=== PATIENT | female | born 1955 | race Caucasian/White ===

== ENCOUNTER 2023-03-15 09:38 | Inpatient (IN) | payer OTHER, MEDICARE ==
[~2023-03-15] VITALS: Ht 154.9 cm; Wt 59.0 kg
[2023-03-15] VITALS (12 sets, daily range): BP systolic 83–162; PULSE 89–141; RESP 19–39; TEMP 97.3–98.9; O2SAT 94–100
[2023-03-15 10:26] LABS: HEMOGLOBIN 8.5 g/dL (12.0-16.0); LYMPHOCYTES # (AUTO) 0.6 K/uL (1.0-5.5); LYMPHOCYTES % (AUTO) 15.8 % (20.5-51.5); MEAN CORPUSCULAR HEMOGLOBIN 28 pg (27-31); MEAN CORPUSCULAR HGB CONC 33 % (32-36); MEAN CORPUSCULAR VOLUME 86 fL (79.0-98.0); MONOCYTES # (AUTO) 0.4 K/uL (0.0-1.0); MONOCYTES % (AUTO) 11.6 % (1.7-9.3); NEUTROPHILS # (AUTO) 2.6 K/uL (1.8-7.7); NEUTROPHILS % (AUTO) 71.6 % (40.0-70.0); PLATELET COUNT (AUTO) 247 K/uL (130-430); RED BLOOD CELL COUNT(AUTO) 3.02 MIL/uL (4.2-6.2); RED CELL DISTRIBUTION WIDTH 15.2 % (9.0-15.0); WHITE BLOOD COUNT (AUTO) 3.6 K/uL (4.8-10.8)
[2023-03-15 10:39] LABS: PROTHROMBIN TIME 10.5 SECS (9.5-12.5)
[2023-03-15 10:47] LABS: ALANINE AMINOTRANSFERASE 170 U/L (12-78); ALBUMIN 1.8 g/dL (3.4-4.8); ANION GAP 0 (5-15); ASPARTATE AMINOTRANSFERASE 262 U/L (10-37); BILIRUBIN,DIRECT 0.2 mg/dL (0.0-0.3); CALCIUM 9.9 mg/dL (8.4-11.0); CARBON DIOXIDE 30 mmol/L (23-29); CHLORIDE 95 mmol/L (98-107); CREATININE 0.45 mg/dL (0.55-1.30); GFR AFRICAN AMERICAN 178 mL/min (>90); GLUCOSE 132 mg/dL (74-106); SODIUM SERUM 125 mmol/L (136-145); TOTAL BILIRUBIN 0.5 mg/dL (0.0-1.0); TOTAL PROTEIN, SERUM 4.8 g/dL (6.4-8.3); UREA NITROGEN, BLOOD 24 mg/dL (8-21)
[2023-03-15 10:49] LABS: INFLUENZA TYPE A Negative (NEGATIVE); INFLUENZA TYPE B NEGATIVE (NEGATIVE)
[2023-03-15 10:50] LABS: GFR NON AFRICAN-AMERICAN 147 mL/min (>90)
[2023-03-15 10:51] LABS: POTASSIUM 2.2 mmol/L (3.5-5.1)
[2023-03-15 10:54] LABS: COVID19 ANTIGEN SOFIA FIA POSITIVE (NEGATIVE)
[2023-03-15 10:57] LABS: BILIRUBIN,URINE NEGATIVE (NEGATIVE); BLOOD, URINE 1+ (NEGATIVE); CLARITY/URINE SL CLOUDY (CLEAR); COLOR,URINE YELLOW (YELLOW); GLUCOSE,URINE NEGATIVE (NEGATIVE); KETONES,URINE NEGATIVE (NEGATIVE); LEUKOCYTE ESTERASE ,URINE NEGATIVE (NEGATIVE); NITRITE, URINE NEGATIVE (NEGATIVE); PROTEIN URINE 2+ (NEGATIVE); UROBILINOGEN,URINE 0.2 (0.2-1.0)
[2023-03-15] MEDS ORDERED: KCL 40 mEq in 100 mL (PREMIX) 100 ML IV ONE (11:00)
[2023-03-15] MEDS ORDERED: POTASSIUM CHLORIDE 40 MEQ in NS 250 ML IV ONE (11:30)
[2023-03-15 11:34] LABS: BACTERIA,URINE FEW /HPF (None Seen); FINE GRANULAR CASTS,URINE 0-10 /LPF (None Seen); WBC,URINE 0-3 /HPF (0-3)
[2023-03-15] MEDS ORDERED: IPRATROPIUM BROM 0.5 MG/2.5 ML VIAL.NEB (ATROVENT) INH ONE (11:45)
[2023-03-15] MEDS ORDERED: ALBUTEROL SULFATE 0.083% 2.5 MG/3 ML VIAL.NEB INH ONE (11:45)
[2023-03-15 12:13] LABS: BLOOD GAS BASE EXCESS 1.5 mmol/L (-3.0-3.0); BLOOD GAS HCO3 26.3 mmol/L (21.0-27.0); BLOOD GAS PCO2 42.2 mmHg (35.0-45.0); BLOOD GAS PH 7.413 (7.350-7.450); BLOOD GAS PO2 90.9 mmHg (75.0-100.0)
[2023-03-15 12:15] LABS: ALLEN'S TEST POSITIVE (P)
[2023-03-15] MEDS ORDERED: CLON0.1T PO (13:14)
[2023-03-15] MEDS ORDERED: APIX5TAB4 PO (13:14)
[2023-03-15] MEDS ORDERED: ACET325T PO ×2 (13:14)
[2023-03-15] MEDS ORDERED: BACL10TA PO (13:14)
[2023-03-15] MEDS ORDERED: LEVO25TA7 PO (13:15)
[2023-03-15] MEDS ORDERED: SENN8.6T19 PO (13:15)
[2023-03-15] MEDS ORDERED: FENT1PAT9 TD (13:15)
[2023-03-15] MEDS ORDERED: METO25TA6 PO (13:15)
[2023-03-15] MEDS ORDERED: BISA-79 PO (13:15)
[2023-03-15] MEDS ORDERED: CYM30 PO (13:15)
[2023-03-15] MEDS ORDERED: DOCU-144 PO (13:15)
[2023-03-15] MEDS ORDERED: MOM PO (13:15)
[2023-03-15] MEDS ORDERED: INSU100V7 SUBCUT (13:15)
[2023-03-15] MEDS ORDERED: HYDR2TAB7 PO (13:15)
[2023-03-15] MEDS ORDERED: ONDA-8 TL (13:15)
[2023-03-15] MEDS ORDERED: CYAN100010 PO (13:15)
[2023-03-15] MEDS ORDERED: PRO40 PO (13:15)
[2023-03-15] MEDS ORDERED: NALOXONE HCL 0.4 MG/ML AMP (NARCAN) IVP PRN ×2 (14:15)
[2023-03-15] MEDS ORDERED: ONDANSETRON HCL 4 MG/2 ML VIAL IVP PRN (14:15)
[2023-03-15] MEDS ORDERED: MILK OF MAGNESIA 30 ML UDC PO PRN (14:15)
[2023-03-15] MEDS ORDERED: cloNIDine HCL 0.1 MG TABLET PO PRN (14:15)
[2023-03-15] MEDS ORDERED: ACETAMINOPHEN 325 MG TABLET PO PRN (14:30)
[2023-03-15] MEDS: cefTRIAXone 1 GM IVPB PREMIX 50 ML IV SCH (15:47)
[2023-03-15] MEDS: IPRATROPIUM BROM 0.5 MG/2.5 ML VIAL.NEB (ATROVENT) INH SCH ×3 (15:53→23:20)
[2023-03-15] MEDS: ALBUTEROL SULFATE 0.083% 2.5 MG/3 ML VIAL.NEB INH SCH ×2 (15:54→20:07)
[2023-03-15] MEDS ORDERED: HYDROcodone/ACETAMIN 5-325 MG TAB (NORCO/ VICODIN) PO PRN (16:45)
[2023-03-15] MEDS: SENNOSIDES 8.6 MG TABLET PO SCH ×2 (17:28→21:15)
[2023-03-15] MEDS: AZITHROMYCIN 500 MG in NS 250 ML IV SCH (17:29)
[2023-03-15] MEDS: DEXAMETHASONE SOD PHOSPHATE 10 MG/ML VIAL IVP SCH (17:29)
[2023-03-15] MEDS ORDERED: NON-FORMULARY MEDICATION (Apixaban (Eliquis) 5 MG) PO SCH (21:00)
[2023-03-15] MEDS: DULoxetine HCL 30 MG CAPSULE.DR (CYMBALTA) PO SCH (21:15)
[2023-03-15] MEDS: NORMAL SALINE 5 ML DISP.SYRIN IVF SCH (21:15)
[2023-03-15] MEDS: DOCUSATE SODIUM 100 MG CAPSULE PO SCH (21:15)
[2023-03-15] MEDS: BACLOFEN 10 MG TABLET PO SCH (21:16)
[2023-03-15] MEDS: APIXABAN 2.5 MG TABLET PO SCH (21:17)
[2023-03-15] MEDS: METOPROLOL TARTRATE 25 MG TABLET PO SCH (21:19)
[2023-03-16] VITALS (28 sets, daily range): BP systolic 98–162; PULSE 79–115; RESP 20–34; TEMP 97.6–98.8; O2SAT 91–100
[2023-03-16] MEDS: ALBUTEROL SULFATE 0.083% 2.5 MG/3 ML VIAL.NEB INH SCH ×7 (00:35→23:18)
[2023-03-16] MEDS: IPRATROPIUM BROM 0.5 MG/2.5 ML VIAL.NEB (ATROVENT) INH SCH ×6 (03:27→23:18)
[2023-03-16 06:01] LABS: BASOPHILS % (AUTO) 0.3 % (0.0-2.0); EOSINOPHILS % (AUTO) 0.1 % (0.0-4.0); HEMATOCRIT 25.5 % (36-48); HEMOGLOBIN 8.2 g/dL (12.0-16.0); LYMPHOCYTES % (AUTO) 13.4 % (20.5-51.5); MEAN CORPUSCULAR HEMOGLOBIN 28 pg (27-31); MEAN CORPUSCULAR HGB CONC 32 % (32-36); MEAN CORPUSCULAR VOLUME 86 fL (79.0-98.0); MONOCYTES # (AUTO) 0.9 K/uL (0.0-1.0); NEUTROPHILS # (AUTO) 5.2 K/uL (1.8-7.7); NEUTROPHILS % (AUTO) 73.2 % (40.0-70.0); PLATELET COUNT (AUTO) 257 K/uL (130-430); RED BLOOD CELL COUNT(AUTO) 2.96 MIL/uL (4.2-6.2); RED CELL DISTRIBUTION WIDTH 15.5 % (9.0-15.0); WHITE BLOOD COUNT (AUTO) 7.1 K/uL (4.8-10.8)
[2023-03-16] MEDS: NACL 0.9% 1,000 ML IV SCH ×3 (06:48→21:40)
[2023-03-16] MEDS: NORMAL SALINE 5 ML DISP.SYRIN IVF SCH ×3 (06:48→21:40)
[2023-03-16 06:50] LABS: CALCIUM 10.9 mg/dL (8.4-11.0); CREATININE 0.45 mg/dL (0.55-1.30)
[2023-03-16 06:53] LABS: POTASSIUM 2.9 mmol/L (3.5-5.1)
[2023-03-16] MEDS: LEVOTHYROXINE SODIUM 0.025 MG TABLET PO SCH ×2 (07:00→08:43)
[2023-03-16] MEDS ORDERED: KCL 20 mEq in 100 mL (PREMIX) 100 ML IV ONE (08:00)
[2023-03-16] MEDS: DULoxetine HCL 30 MG CAPSULE.DR (CYMBALTA) PO SCH ×2 (08:41→20:57)
[2023-03-16] MEDS: METOPROLOL TARTRATE 25 MG TABLET PO SCH ×2 (08:41→20:58)
[2023-03-16 08:42] LABS: ALANINE AMINOTRANSFERASE 277 U/L (12-78); ASPARTATE AMINOTRANSFERASE 393 U/L (10-37)
[2023-03-16] MEDS: BACLOFEN 10 MG TABLET PO SCH ×2 (08:42→20:57)
[2023-03-16] MEDS: PANTOPRAZOLE SODIUM 40 MG TAB PO SCH (08:42)
[2023-03-16] MEDS: DOCUSATE SODIUM 100 MG CAPSULE PO SCH ×2 (08:42→20:56)
[2023-03-16] MEDS: SENNOSIDES 8.6 MG TABLET PO SCH ×3 (08:43→20:58)
[2023-03-16] MEDS: BISACODYL 5 MG TABLET.DR (DULCOLAX) PO SCH (08:43)
[2023-03-16] MEDS: APIXABAN 2.5 MG TABLET PO SCH ×2 (08:44→20:57)
[2023-03-16] MEDS ORDERED: POTASSIUM CHLORIDE 60 MEQ in NS 500 ML IV ONE (09:00)
[2023-03-16] MEDS: CYANOCOBALAMIN (VITAMIN B-12) 1,000 MCG TABLET PO SCH (09:35)
[2023-03-16] MEDS: fentaNYL 100 MCG/HR PATCH TD SCH (11:27)
[2023-03-16] MEDS: cefTRIAXone 1 GM IVPB PREMIX 50 ML IV SCH (15:24)
[2023-03-16] MEDS: AZITHROMYCIN 500 MG in NS 250 ML IV SCH (15:24)
[2023-03-16] MEDS: DEXAMETHASONE SOD PHOSPHATE 10 MG/ML VIAL IVP SCH (15:24)
[2023-03-17] VITALS (32 sets, daily range): BP systolic 90–131; PULSE 86–118; RESP 13–34; TEMP 97.5–98; O2SAT 12–100
[2023-03-17] MEDS: ALBUTEROL SULFATE 0.083% 2.5 MG/3 ML VIAL.NEB INH SCH ×5 (03:33→19:33)
[2023-03-17] MEDS: IPRATROPIUM BROM 0.5 MG/2.5 ML VIAL.NEB (ATROVENT) INH SCH ×5 (03:33→19:33)
[2023-03-17] MEDS: NORMAL SALINE 5 ML DISP.SYRIN IVF SCH ×3 (06:16→21:31)
[2023-03-17 07:33] LABS: HEMATOCRIT 24.3 % (36-48); HEMOGLOBIN 7.7 g/dL (12.0-16.0); LYMPHOCYTES # (AUTO) 0.6 K/uL (1.0-5.5); LYMPHOCYTES % (AUTO) 11.4 % (20.5-51.5); MEAN CORPUSCULAR HEMOGLOBIN 28 pg (27-31); MEAN CORPUSCULAR HGB CONC 32 % (32-36); MEAN CORPUSCULAR VOLUME 87 fL (79.0-98.0); MONOCYTES # (AUTO) 0.2 K/uL (0.0-1.0); MONOCYTES % (AUTO) 4.6 % (1.7-9.3); PLATELET COUNT (AUTO) 332 K/uL (130-430); RED BLOOD CELL COUNT(AUTO) 2.79 MIL/uL (4.2-6.2); WHITE BLOOD COUNT (AUTO) 4.8 K/uL (4.8-10.8)
[2023-03-17 08:01] LABS: ALBUMIN 1.7 g/dL (3.4-4.8); CALCIUM 9.8 mg/dL (8.4-11.0); CREATININE 0.29 mg/dL (0.55-1.30); POTASSIUM 4.1 mmol/L (3.5-5.1); TOTAL BILIRUBIN 0.3 mg/dL (0.0-1.0); TOTAL PROTEIN, SERUM 4.3 g/dL (6.4-8.3)
[2023-03-17] MEDS: SENNOSIDES 8.6 MG TABLET PO SCH ×3 (08:40→21:00)
[2023-03-17] MEDS: PANTOPRAZOLE SODIUM 40 MG TAB PO SCH (08:41)
[2023-03-17] MEDS: DULoxetine HCL 30 MG CAPSULE.DR (CYMBALTA) PO SCH ×2 (08:41→21:29)
[2023-03-17] MEDS: DOCUSATE SODIUM 100 MG CAPSULE PO SCH ×2 (08:41→21:00)
[2023-03-17] MEDS: BACLOFEN 10 MG TABLET PO SCH ×2 (08:43→21:29)
[2023-03-17] MEDS: METOPROLOL TARTRATE 25 MG TABLET PO SCH ×2 (08:44→21:30)
[2023-03-17] MEDS: APIXABAN 2.5 MG TABLET PO SCH ×2 (08:46→21:29)
[2023-03-17] MEDS: NACL 0.9% 1,000 ML IV SCH ×2 (08:48→15:00)
[2023-03-17] MEDS: CYANOCOBALAMIN (VITAMIN B-12) 1,000 MCG TABLET PO SCH (08:49)
[2023-03-17] MEDS: BISACODYL 5 MG TABLET.DR (DULCOLAX) PO SCH (08:51)
[2023-03-17 08:52] LABS: ERYTHROCYTE SEDIMENTATION RATE 5 MM/HR (0-20)
[2023-03-17] MEDS: MICAFUNGIN SODIUM 100 MG in NS 100 ML IV SCH (12:39)
[2023-03-17] MEDS: cefTRIAXone 1 GM IVPB PREMIX 50 ML IV SCH (14:43)
[2023-03-17] MEDS: DEXAMETHASONE SOD PHOSPHATE 10 MG/ML VIAL IVP SCH (15:14)
[2023-03-17] MEDS: AZITHROMYCIN 500 MG in NS 250 ML IV SCH (15:16)
[2023-03-18] VITALS (14 sets, daily range): BP systolic 95–112; PULSE 63–109; RESP 16–18; TEMP 97.1–98.4; O2SAT 91–100
[2023-03-18] MEDS: IPRATROPIUM BROM 0.5 MG/2.5 ML VIAL.NEB (ATROVENT) INH SCH ×7 (00:09→23:00)
[2023-03-18] MEDS: ALBUTEROL SULFATE 0.083% 2.5 MG/3 ML VIAL.NEB INH SCH ×7 (00:09→23:00)
[2023-03-18] MEDS: NORMAL SALINE 5 ML DISP.SYRIN IVF SCH ×3 (06:18→22:39)
[2023-03-18] MEDS: LEVOTHYROXINE SODIUM 0.025 MG TABLET PO SCH (06:18)
[2023-03-18 06:23] LABS: ERYTHROCYTE SEDIMENTATION RATE 4 MM/HR (0-20)
[2023-03-18] MEDS: NACL 0.9% 1,000 ML IV SCH ×3 (06:25→22:31)
[2023-03-18 06:39] LABS: BASOPHILS % (AUTO) 0.1 % (0.0-2.0); HEMATOCRIT 25.7 % (36-48); HEMOGLOBIN 8.2 g/dL (12.0-16.0); LYMPHOCYTES # (AUTO) 0.6 K/uL (1.0-5.5); LYMPHOCYTES % (AUTO) 7.8 % (20.5-51.5); MEAN CORPUSCULAR HEMOGLOBIN 28 pg (27-31); MEAN CORPUSCULAR HGB CONC 32 % (32-36); MEAN CORPUSCULAR VOLUME 87 fL (79.0-98.0); MONOCYTES # (AUTO) 0.3 K/uL (0.0-1.0); MONOCYTES % (AUTO) 4.2 % (1.7-9.3); NEUTROPHILS # (AUTO) 6.3 K/uL (1.8-7.7); NEUTROPHILS % (AUTO) 87.9 % (40.0-70.0); PLATELET COUNT (AUTO) 458 K/uL (130-430); RED BLOOD CELL COUNT(AUTO) 2.96 MIL/uL (4.2-6.2); RED CELL DISTRIBUTION WIDTH 16.6 % (9.0-15.0); WHITE BLOOD COUNT (AUTO) 7.1 K/uL (4.8-10.8)
[2023-03-18 07:06] LABS: ALBUMIN 1.8 g/dL (3.4-4.8); CALCIUM 10.3 mg/dL (8.4-11.0); CREATININE 0.45 mg/dL (0.55-1.30); POTASSIUM 3.9 mmol/L (3.5-5.1); TOTAL BILIRUBIN 0.3 mg/dL (0.0-1.0); TOTAL PROTEIN, SERUM 4.4 g/dL (6.4-8.3)
[2023-03-18] MEDS: DOCUSATE SODIUM 100 MG CAPSULE PO SCH ×2 (09:01→23:31)
[2023-03-18] MEDS: DULoxetine HCL 30 MG CAPSULE.DR (CYMBALTA) PO SCH ×2 (09:01→22:32)
[2023-03-18] MEDS: APIXABAN 2.5 MG TABLET PO SCH ×2 (09:02→22:50)
[2023-03-18] MEDS: BACLOFEN 10 MG TABLET PO SCH ×2 (09:03→22:31)
[2023-03-18] MEDS: PANTOPRAZOLE SODIUM 40 MG TAB PO SCH (09:03)
[2023-03-18] MEDS: SENNOSIDES 8.6 MG TABLET PO SCH ×3 (09:03→22:32)
[2023-03-18] MEDS: CYANOCOBALAMIN (VITAMIN B-12) 1,000 MCG TABLET PO SCH (09:04)
[2023-03-18] MEDS: BISACODYL 5 MG TABLET.DR (DULCOLAX) PO SCH (09:04)
[2023-03-18] MEDS: METOPROLOL TARTRATE 25 MG TABLET PO SCH ×2 (09:29→22:37)
[2023-03-18] MEDS: cefTRIAXone 1 GM IVPB PREMIX 50 ML IV SCH (15:40)
[2023-03-18] MEDS: MICAFUNGIN SODIUM 100 MG in NS 100 ML IV SCH (15:41)
[2023-03-18] MEDS: DEXAMETHASONE SOD PHOSPHATE 10 MG/ML VIAL IVP SCH (15:42)
[2023-03-18] MEDS: AZITHROMYCIN 500 MG in NS 250 ML IV SCH (16:02)
[2023-03-19 01:15] VITALS: BP_SYST 119; PULSE 87; RESP 20; TEMP 96.9; O2SAT 99
[2023-03-19] MEDS: ALBUTEROL SULFATE 0.083% 2.5 MG/3 ML VIAL.NEB INH SCH ×2 (03:00→07:00)
[2023-03-19] MEDS: IPRATROPIUM BROM 0.5 MG/2.5 ML VIAL.NEB (ATROVENT) INH SCH ×2 (03:00→07:00)
[2023-03-19 05:28] VITALS: O2SAT 99
[2023-03-19 06:11] LABS: ERYTHROCYTE SEDIMENTATION RATE 2 MM/HR (0-20)
[2023-03-19 06:16] LABS: BASOPHILS % (AUTO) 0.1 % (0.0-2.0); HEMATOCRIT 27.7 % (36-48); HEMOGLOBIN 8.8 g/dL (12.0-16.0); LYMPHOCYTES # (AUTO) 0.8 K/uL (1.0-5.5); LYMPHOCYTES % (AUTO) 9.5 % (20.5-51.5); MEAN CORPUSCULAR HEMOGLOBIN 27 pg (27-31); MEAN CORPUSCULAR HGB CONC 32 % (32-36); MEAN CORPUSCULAR VOLUME 87 fL (79.0-98.0); MONOCYTES # (AUTO) 0.3 K/uL (0.0-1.0); MONOCYTES % (AUTO) 3.1 % (1.7-9.3); NEUTROPHILS # (AUTO) 7.4 K/uL (1.8-7.7); NEUTROPHILS % (AUTO) 87.3 % (40.0-70.0); PLATELET COUNT (AUTO) 620 K/uL (130-430); RED BLOOD CELL COUNT(AUTO) 3.19 MIL/uL (4.2-6.2); RED CELL DISTRIBUTION WIDTH 16.7 % (9.0-15.0); WHITE BLOOD COUNT (AUTO) 8.5 K/uL (4.8-10.8)
[2023-03-19 06:32] LABS: CALCIUM 9.9 mg/dL (8.4-11.0); CREATININE 0.4 mg/dL (0.55-1.30); TOTAL BILIRUBIN 0.2 mg/dL (0.0-1.0); TOTAL PROTEIN, SERUM 4.5 g/dL (6.4-8.3)
[2023-03-19] MEDS: NORMAL SALINE 5 ML DISP.SYRIN IVF SCH ×3 (06:42→22:05)
[2023-03-19] MEDS: LEVOTHYROXINE SODIUM 0.025 MG TABLET PO SCH (06:56)
[2023-03-19] MEDS: NACL 0.9% 1,000 ML IV SCH (07:00)
[2023-03-19 09:50] VITALS: BP_SYST 115; PULSE 82; RESP 20; TEMP 97.7; O2SAT 94
[2023-03-19] MEDS: DULoxetine HCL 30 MG CAPSULE.DR (CYMBALTA) PO SCH ×2 (10:01→22:04)
[2023-03-19] MEDS: BACLOFEN 10 MG TABLET PO SCH ×2 (10:01→22:04)
[2023-03-19] MEDS: SENNOSIDES 8.6 MG TABLET PO SCH ×3 (10:01→22:04)
[2023-03-19] MEDS: BISACODYL 5 MG TABLET.DR (DULCOLAX) PO SCH (10:01)
[2023-03-19] MEDS: DOCUSATE SODIUM 100 MG CAPSULE PO SCH ×2 (10:01→22:36)
[2023-03-19] MEDS: CYANOCOBALAMIN (VITAMIN B-12) 1,000 MCG TABLET PO SCH (10:02)
[2023-03-19] MEDS: PANTOPRAZOLE SODIUM 40 MG TAB PO SCH (10:02)
[2023-03-19] MEDS: METOPROLOL TARTRATE 25 MG TABLET PO SCH ×2 (10:07→22:16)
[2023-03-19] MEDS: APIXABAN 2.5 MG TABLET PO SCH ×2 (10:10→22:18)
[2023-03-19 10:15] VITALS: O2SAT 94
[2023-03-19 11:23] VITALS: BP_SYST 109; PULSE 68; RESP 16; TEMP 97.4; O2SAT 94
[2023-03-19] MEDS: fentaNYL 100 MCG/HR PATCH TD SCH (12:01)
[2023-03-19 16:07] VITALS: BP_SYST 112; PULSE 74; RESP 15; TEMP 97.2; O2SAT 93
[2023-03-19] MEDS: MICAFUNGIN SODIUM 100 MG in NS 100 ML IV SCH (16:09)
[2023-03-19] MEDS: DEXAMETHASONE SOD PHOSPHATE 10 MG/ML VIAL IVP SCH (16:10)
[2023-03-19] MEDS: cefTRIAXone 1 GM IVPB PREMIX 50 ML IV SCH (17:54)
[2023-03-19] MEDS: AZITHROMYCIN 500 MG in NS 250 ML IV SCH (18:25)
[2023-03-20] VITALS (17 sets, daily range): BP systolic 74–151; PULSE 71–109; RESP 12–25; TEMP 97–97.5; O2SAT 94–100
[2023-03-20 05:58] LABS: BASOPHILS % (AUTO) 0.2 % (0.0-2.0); HEMATOCRIT 29.2 % (36-48); HEMOGLOBIN 9.1 g/dL (12.0-16.0); LYMPHOCYTES % (AUTO) 9.2 % (20.5-51.5); MEAN CORPUSCULAR HEMOGLOBIN 27 pg (27-31); MEAN CORPUSCULAR HGB CONC 31 % (32-36); MEAN CORPUSCULAR VOLUME 86 fL (79.0-98.0); MONOCYTES # (AUTO) 0.5 K/uL (0.0-1.0); MONOCYTES % (AUTO) 4.6 % (1.7-9.3); NEUTROPHILS # (AUTO) 9.1 K/uL (1.8-7.7); RED BLOOD CELL COUNT(AUTO) 3.38 MIL/uL (4.2-6.2); RED CELL DISTRIBUTION WIDTH 17.5 % (9.0-15.0); WHITE BLOOD COUNT (AUTO) 10.5 K/uL (4.8-10.8)
[2023-03-20 06:01] LABS: ERYTHROCYTE SEDIMENTATION RATE 1 MM/HR (0-20)
[2023-03-20 06:26] LABS: PLATELET COUNT (AUTO) 835 K/uL (130-430)
[2023-03-20 06:41] LABS: ALBUMIN 2.2 g/dL (3.4-4.8); CALCIUM 10.3 mg/dL (8.4-11.0); CREATININE 0.51 mg/dL (0.55-1.30); POTASSIUM 3.8 mmol/L (3.5-5.1); TOTAL BILIRUBIN 0.4 mg/dL (0.0-1.0); TOTAL PROTEIN, SERUM 4.9 g/dL (6.4-8.3)
[2023-03-20] MEDS: NORMAL SALINE 5 ML DISP.SYRIN IVF SCH (06:58)
[2023-03-20] MEDS: LEVOTHYROXINE SODIUM 0.025 MG TABLET PO SCH (07:01)
[2023-03-20] MEDS: SENNOSIDES 8.6 MG TABLET PO SCH ×3 (10:08→20:49)
[2023-03-20] MEDS: PANTOPRAZOLE SODIUM 40 MG TAB PO SCH (10:08)
[2023-03-20] MEDS: BISACODYL 5 MG TABLET.DR (DULCOLAX) PO SCH (10:08)
[2023-03-20] MEDS: CYANOCOBALAMIN (VITAMIN B-12) 1,000 MCG TABLET PO SCH (10:09)
[2023-03-20] MEDS: DULoxetine HCL 30 MG CAPSULE.DR (CYMBALTA) PO SCH ×2 (10:09→20:49)
[2023-03-20] MEDS: DOCUSATE SODIUM 100 MG CAPSULE PO SCH ×2 (10:09→20:50)
[2023-03-20] MEDS: METOPROLOL TARTRATE 25 MG TABLET PO SCH ×2 (10:13→20:47)
[2023-03-20] MEDS: BACLOFEN 10 MG TABLET PO SCH ×2 (10:14→20:49)
[2023-03-20] MEDS: APIXABAN 2.5 MG TABLET PO SCH ×2 (10:18→20:49)
[2023-03-20 11:04] LABS: TOTAL IRON BIND. CAPACITY 156 ug/dL (250-450)
[2023-03-20 11:17] LABS: ACETAMINOPHEN 6 ug/mL (1-30); SALICYLATE 3 mg/dL (3-30)
[2023-03-20] MEDS: MICAFUNGIN SODIUM 100 MG in NS 100 ML IV SCH (13:43)
[2023-03-20 14:22] LABS: ABG O2 SAT% ESTIMATE 96.5 % (94.0-100.0); BLOOD GAS HCO3 22.2 mmol/L (21.0-27.0); BLOOD GAS PO2 100.1 mmHg (75.0-100.0)
[2023-03-20 14:23] LABS: BLOOD GAS BASE EXCESS -5.7 mmol/L (-3.0-3.0); BLOOD GAS PCO2 52.7 mmHg (35.0-45.0); BLOOD GAS PH 7.242 (7.350-7.450)
[2023-03-20 14:24] LABS: ALLEN'S TEST POSITIVE (P)
[2023-03-20] MEDS: cefTRIAXone 1 GM IVPB PREMIX 50 ML IV SCH (15:12)
[2023-03-20] MEDS ORDERED: NS 1000 ML IV.SOLN IV ONE (15:15)
[2023-03-20] MEDS ORDERED: HYDROCORTISONE SOD SUCC 100 MG/2 ML VIAL IVP ONE (15:15)
[2023-03-20] MEDS: NOREPINEPHRINE BITARTRATE 4 MG in D5W 246 ML IV PRN (15:48)
[2023-03-20] MEDS: NACL 0.9% 1,000 ML IV SCH (16:45)
[2023-03-20] MEDS: LORazepam 2 MG/ML VIAL IVP PRN (18:47)
[2023-03-20] MEDS: HYDROCORTISONE SOD SUCC 100 MG/2 ML VIAL IVP SCH (21:02)
[2023-03-21] VITALS (33 sets, daily range): BP systolic 92–177; PULSE 82–116; RESP 17–36; TEMP 96.9–98.4; O2SAT 95–100
[2023-03-21] MEDS: NACL 0.9% 1,000 ML IV SCH ×2 (02:32→11:12)
[2023-03-21 04:54] LABS: ERYTHROCYTE SEDIMENTATION RATE < 1 MM/HR (0-20)
[2023-03-21 04:58] LABS: BASOPHILS % (AUTO) 0.3 % (0.0-2.0); EOSINOPHILS % (AUTO) 0.1 % (0.0-4.0); HEMATOCRIT 23.8 % (36-48); HEMOGLOBIN 7.4 g/dL (12.0-16.0); LYMPHOCYTES # (AUTO) 0.5 K/uL (1.0-5.5); LYMPHOCYTES % (AUTO) 4.1 % (20.5-51.5); MEAN CORPUSCULAR HEMOGLOBIN 27 pg (27-31); MEAN CORPUSCULAR HGB CONC 31 % (32-36); MEAN CORPUSCULAR VOLUME 87 fL (79.0-98.0); MONOCYTES # (AUTO) 0.2 K/uL (0.0-1.0); MONOCYTES % (AUTO) 1.9 % (1.7-9.3); NEUTROPHILS # (AUTO) 11.7 K/uL (1.8-7.7); NEUTROPHILS % (AUTO) 93.6 % (40.0-70.0); PLATELET COUNT (AUTO) 455 K/uL (130-430); RED BLOOD CELL COUNT(AUTO) 2.75 MIL/uL (4.2-6.2); RED CELL DISTRIBUTION WIDTH 17.4 % (9.0-15.0); WHITE BLOOD COUNT (AUTO) 12.5 K/uL (4.8-10.8)
[2023-03-21 05:22] LABS: CALCIUM 9.5 mg/dL (8.4-11.0); CREATININE 0.69 mg/dL (0.55-1.30); POTASSIUM 3.5 mmol/L (3.5-5.1)
[2023-03-21] MEDS: LEVOTHYROXINE SODIUM 0.025 MG TABLET PO SCH (06:21)
[2023-03-21] MEDS: HYDROCORTISONE SOD SUCC 100 MG/2 ML VIAL IVP SCH ×3 (06:22→21:29)
[2023-03-21 07:07] LABS: ALPHA-1-ANTITRYPSIN, S 229 mg/dL (101-187)
[2023-03-21 08:06] LABS: FERRITIN 697 ng/mL (15-150)
[2023-03-21 08:18] LABS: BARBITURATE, URINE NEGATIVE (NEG <=200); BENZODIAZEPINE, URINE NEGATIVE (NEG <=150); CANNABINOID, URINE NEGATIVE (NEG <=50); COCAINE, URINE NEGATIVE (NEG <=150); METHAMPHETAMINES SCREEN,URINE NEGATIVE (NEG <=500); OPIATE, URINE NEGATIVE (NEG <=100); PHENCYCLIDINE SCREEN,URINE NEGATIVE (NEG <=25); UR TRICYCLIC ANTIDEPRESSANTS NEGATIVE (NEG <=300); URINE AMPHETAMINE NEGATIVE (NEG <=500); URINE METHADONE NEGATIVE (NEG <=200); URINE OXYCODONE SCREEN NEGATIVE (NEG <=100); URINE PROPOXYPHENE SCREEN NEGATIVE (NEG <=300)
[2023-03-21] MEDS: DOCUSATE SODIUM 100 MG CAPSULE PO SCH (09:00)
[2023-03-21] MEDS: CYANOCOBALAMIN (VITAMIN B-12) 1,000 MCG TABLET PO SCH (09:00)
[2023-03-21] MEDS: SENNOSIDES 8.6 MG TABLET PO SCH ×3 (09:30→21:28)
[2023-03-21] MEDS: BACLOFEN 10 MG TABLET PO SCH ×2 (09:31→21:30)
[2023-03-21] MEDS: DULoxetine HCL 30 MG CAPSULE.DR (CYMBALTA) PO SCH ×2 (09:32→21:30)
[2023-03-21] MEDS: METOPROLOL TARTRATE 25 MG TABLET PO SCH ×2 (09:33→21:31)
[2023-03-21] MEDS: PANTOPRAZOLE SODIUM 40 MG TAB PO SCH (09:33)
[2023-03-21] MEDS: BISACODYL 5 MG TABLET.DR (DULCOLAX) PO SCH (09:35)
[2023-03-21] MEDS: APIXABAN 2.5 MG TABLET PO SCH ×2 (09:35→21:29)
[2023-03-21 10:57] LABS: BLOOD GAS PCO2 26.3 mmHg (35.0-45.0); BLOOD GAS PH 7.476 (7.350-7.450)
[2023-03-21 10:58] LABS: ABG O2 SAT% ESTIMATE 98.5 % (94.0-100.0); ALLEN'S TEST POSITIVE (P); BLOOD GAS BASE EXCESS -2.9 mmol/L (-3.0-3.0)
[2023-03-21 12:07] LABS: HEPATITIS C VIRUS AB Non Reactive (Non Reactive)
[2023-03-21] MEDS: MICAFUNGIN SODIUM 100 MG in NS 100 ML IV SCH (12:38)
[2023-03-21] MEDS: cefTRIAXone 1 GM IVPB PREMIX 50 ML IV SCH (12:39)
[2023-03-21] MEDS: HYDROmorphone 2 MG TAB PO PRN (12:51)
[2023-03-21 13:07] LABS: HEPATITIS A AB, IgM Negative (Negative); HEPATITIS B CORE AB, IgM Negative (Negative); HEPATITIS B SURFACE AG Negative (Negative)
[2023-03-21 16:06] LABS: ANTI NUCLEAR AB WITH REFLEX Negative (Negative)
[2023-03-21] MEDS: D5/0.45 NS 1,000 ML IV SCH (18:49)
[2023-03-21] MEDS: DOCUSATE SODIUM 100 MG/10 ML UDC PO SCH (21:29)
[2023-03-22] VITALS (36 sets, daily range): BP systolic 79–178; PULSE 75–131; RESP 10–42; TEMP 98.3–98.6; O2SAT 80–100
[2023-03-22] MEDS ORDERED: hydrALAZINE HCL 20 MG/ML VIAL ONE (03:26)
[2023-03-22] MEDS: D5/0.45 NS 1,000 ML IV SCH ×3 (04:15→21:26)
[2023-03-22] MEDS: ACETAMINOPHEN 325 MG TABLET PO PRN ×2 (04:34→07:00)
[2023-03-22] MEDS: HYDROmorphone 2 MG TAB PO PRN (05:18)
[2023-03-22 06:20] LABS: ALBUMIN 2.1 g/dL (3.4-4.8); CALCIUM 9.5 mg/dL (8.4-11.0); CREATININE 0.88 mg/dL (0.55-1.30); POTASSIUM 3.1 mmol/L (3.5-5.1); TOTAL BILIRUBIN 0.6 mg/dL (0.0-1.0)
[2023-03-22] MEDS: LEVOTHYROXINE SODIUM 0.025 MG TABLET PO SCH (07:02)
[2023-03-22] MEDS: HYDROCORTISONE SOD SUCC 100 MG/2 ML VIAL IVP SCH ×3 (07:05→21:42)
[2023-03-22 07:26] LABS: BASOPHILS # (AUTO) 0.1 K/uL (0.0-0.2); BASOPHILS % (AUTO) 0.3 % (0.0-2.0); HEMATOCRIT 31.5 % (36-48); HEMOGLOBIN 9.5 g/dL (12.0-16.0); LYMPHOCYTES # (AUTO) 0.5 K/uL (1.0-5.5); LYMPHOCYTES % (AUTO) 2.6 % (20.5-51.5); MEAN CORPUSCULAR HEMOGLOBIN 27 pg (27-31); MEAN CORPUSCULAR HGB CONC 30 % (32-36); MEAN CORPUSCULAR VOLUME 88 fL (79.0-98.0); MONOCYTES # (AUTO) 0.6 K/uL (0.0-1.0); MONOCYTES % (AUTO) 3.2 % (1.7-9.3); NEUTROPHILS # (AUTO) 18.5 K/uL (1.8-7.7); NEUTROPHILS % (AUTO) 93.9 % (40.0-70.0); RED CELL DISTRIBUTION WIDTH 18.1 % (9.0-15.0); WHITE BLOOD COUNT (AUTO) 19.7 K/uL (4.8-10.8)
[2023-03-22] MEDS: IPRATROPIUM BROM 0.5 MG/2.5 ML VIAL.NEB (ATROVENT) INH PRN (07:39)
[2023-03-22] MEDS: ALBUTEROL SULFATE 0.083% 2.5 MG/3 ML VIAL.NEB INH PRN (07:39)
[2023-03-22 08:01] LABS: PLATELET COUNT (AUTO) 809 K/uL (130-430)
[2023-03-22 08:29] LABS: ERYTHROCYTE SEDIMENTATION RATE 4 MM/HR (0-20)
[2023-03-22 08:35] LABS: TOTAL PROTEIN, SERUM 4.8 g/dL (6.4-8.3)
[2023-03-22] MEDS ORDERED: POTASSIUM CHLORIDE 20 MEQ/PKT PACKET NG ONE (10:00)
[2023-03-22 10:14] LABS: ABG O2 SAT% ESTIMATE 98.9 % (94.0-100.0); BLOOD GAS BASE EXCESS -3.9 mmol/L (-3.0-3.0); BLOOD GAS HCO3 18.1 mmol/L (21.0-27.0); BLOOD GAS PO2 136.1 mmHg (75.0-100.0)
[2023-03-22 10:15] LABS: ALLEN'S TEST POSITIVE (P)
[2023-03-22] MEDS: PANTOPRAZOLE SODIUM 40 MG TAB PO SCH (10:17)
[2023-03-22] MEDS: SENNOSIDES 8.6 MG TABLET PO SCH ×3 (10:17→21:00)
[2023-03-22] MEDS: BISACODYL 5 MG TABLET.DR (DULCOLAX) PO SCH (10:18)
[2023-03-22] MEDS: BACLOFEN 10 MG TABLET PO SCH ×2 (10:19→21:43)
[2023-03-22] MEDS: DOCUSATE SODIUM 100 MG/10 ML UDC PO SCH ×2 (10:19→21:00)
[2023-03-22] MEDS: METOPROLOL TARTRATE 25 MG TABLET PO SCH ×2 (10:20→21:00)
[2023-03-22] MEDS: CYANOCOBALAMIN (VITAMIN B-12) 1,000 MCG TABLET PO SCH (10:21)
[2023-03-22] MEDS: APIXABAN 2.5 MG TABLET PO SCH ×2 (10:21→21:46)
[2023-03-22] MEDS ORDERED: BARICITINIB -Non-Formulary 2 MG TABLET PO ONE (10:30)
[2023-03-22] MEDS: DULoxetine HCL 30 MG CAPSULE.DR (CYMBALTA) PO SCH ×2 (10:31→21:46)
[2023-03-22 11:07] LABS: ANTI-SMOOTH MUSCLE AB 6 Units (0-19)
[2023-03-22] MEDS: MICAFUNGIN SODIUM 100 MG in NS 100 ML IV SCH (12:30)
[2023-03-22] MEDS: PIPERACILLIN/TAZO 4.5GM/DEX-IS 100 ML IV SCH ×2 (13:45→21:42)
[2023-03-22] MEDS: fentaNYL 100 MCG/HR PATCH TD SCH (13:51)
[2023-03-22] MEDS ORDERED: cefTRIAXone 1 GM IVPB PREMIX 50 ML IV SCH (15:00)
[2023-03-22] MEDS: INSULIN REGULAR, HUMAN 100 UNITS/ML, 3 ML VIAL (humuLIN R) SUBCUT PRN ×2 (18:45→22:24)
[2023-03-22] MEDS: NOREPINEPHRINE BITARTRATE 4 MG in D5W 246 ML IV PRN (21:16)
[2023-03-23] VITALS (25 sets, daily range): BP systolic 91–145; PULSE 61–93; RESP 14–34; TEMP 98.1–99.5; O2SAT 90–100
[2023-03-23 05:37] LABS: HEMATOCRIT 25.2 % (36-48); MEAN CORPUSCULAR HEMOGLOBIN 28 pg (27-31); MEAN CORPUSCULAR HGB CONC 32 % (32-36); MEAN CORPUSCULAR VOLUME 87 fL (79.0-98.0); MONOCYTES # (AUTO) 0.5 K/uL (0.0-1.0); MONOCYTES % (AUTO) 4.7 % (1.7-9.3); NEUTROPHILS # (AUTO) 8.4 K/uL (1.8-7.7); NEUTROPHILS % (AUTO) 85.3 % (40.0-70.0); PLATELET COUNT (AUTO) 523 K/uL (130-430); RED CELL DISTRIBUTION WIDTH 18.3 % (9.0-15.0); WHITE BLOOD COUNT (AUTO) 9.9 K/uL (4.8-10.8)
[2023-03-23 05:53] LABS: ERYTHROCYTE SEDIMENTATION RATE < 1 MM/HR (0-20)
[2023-03-23] MEDS: HYDROCORTISONE SOD SUCC 100 MG/2 ML VIAL IVP SCH ×3 (06:30→21:39)
[2023-03-23] MEDS: PIPERACILLIN/TAZO 4.5GM/DEX-IS 100 ML IV SCH ×3 (06:30→21:38)
[2023-03-23] MEDS: LEVOTHYROXINE SODIUM 0.025 MG TABLET PO SCH (06:31)
[2023-03-23 06:48] LABS: CALCIUM 8.3 mg/dL (8.4-11.0); CREATININE 0.65 mg/dL (0.55-1.30)
[2023-03-23 07:03] LABS: POTASSIUM 2.6 mmol/L (3.5-5.1)
[2023-03-23] MEDS: DULoxetine HCL 30 MG CAPSULE.DR (CYMBALTA) PO SCH ×2 (08:18→21:40)
[2023-03-23] MEDS: APIXABAN 2.5 MG TABLET PO SCH ×2 (08:19→21:42)
[2023-03-23] MEDS: BISACODYL 5 MG TABLET.DR (DULCOLAX) PO SCH (08:19)
[2023-03-23] MEDS: DOCUSATE SODIUM 100 MG/10 ML UDC PO SCH ×2 (08:20→21:38)
[2023-03-23] MEDS: PANTOPRAZOLE SODIUM 40 MG TAB PO SCH (08:20)
[2023-03-23] MEDS: SENNOSIDES 8.6 MG TABLET PO SCH ×3 (08:20→21:39)
[2023-03-23] MEDS: BACLOFEN 10 MG TABLET PO SCH ×2 (08:21→21:51)
[2023-03-23] MEDS: CYANOCOBALAMIN (VITAMIN B-12) 1,000 MCG TABLET PO SCH (08:26)
[2023-03-23] MEDS: BARICITINIB -Non-Formulary 2 MG TABLET PO SCH (08:27)
[2023-03-23] MEDS ORDERED: POTASSIUM CHLORIDE 40 MEQ in NS 250 ML IV ONE (08:30)
[2023-03-23] MEDS: VANCOMYCIN HCL 1,250 MG in NS 250 ML IV SCH (12:03)
[2023-03-23] MEDS: D5/0.45 NS 1,000 ML IV SCH ×2 (13:36→21:53)
[2023-03-23] MEDS: MICAFUNGIN SODIUM 100 MG in NS 100 ML IV SCH (13:37)
[2023-03-23] MEDS: METOPROLOL TARTRATE 25 MG TABLET PO SCH ×2 (21:40→21:52)
[2023-03-24] VITALS (31 sets, daily range): BP systolic 94–152; PULSE 65–96; RESP 16–28; TEMP 98.1–98.8; O2SAT 99–100
[2023-03-24] MEDS: D5/0.45 NS 1,000 ML IV SCH (06:15)
[2023-03-24 06:34] LABS: EOSINOPHILS % (AUTO) 0.1 % (0.0-4.0); HEMOGLOBIN 7.7 g/dL (12.0-16.0); LYMPHOCYTES # (AUTO) 0.5 K/uL (1.0-5.5); LYMPHOCYTES % (AUTO) 7.9 % (20.5-51.5); MEAN CORPUSCULAR HEMOGLOBIN 28 pg (27-31); MEAN CORPUSCULAR HGB CONC 32 % (32-36); MEAN CORPUSCULAR VOLUME 87 fL (79.0-98.0); MONOCYTES # (AUTO) 0.3 K/uL (0.0-1.0); MONOCYTES % (AUTO) 4.1 % (1.7-9.3); NEUTROPHILS # (AUTO) 6.1 K/uL (1.8-7.7); NEUTROPHILS % (AUTO) 87.9 % (40.0-70.0); PLATELET COUNT (AUTO) 385 K/uL (130-430); RED BLOOD CELL COUNT(AUTO) 2.75 MIL/uL (4.2-6.2); RED CELL DISTRIBUTION WIDTH 18.8 % (9.0-15.0); WHITE BLOOD COUNT (AUTO) 6.9 K/uL (4.8-10.8)
[2023-03-24] MEDS: PIPERACILLIN/TAZO 4.5GM/DEX-IS 100 ML IV SCH ×3 (06:40→21:38)
[2023-03-24] MEDS: HYDROCORTISONE SOD SUCC 100 MG/2 ML VIAL IVP SCH ×3 (06:40→21:39)
[2023-03-24] MEDS: LEVOTHYROXINE SODIUM 0.025 MG TABLET PO SCH (06:40)
[2023-03-24 07:01] LABS: CALCIUM 7.8 mg/dL (8.4-11.0); CREATININE 0.59 mg/dL (0.55-1.30); POTASSIUM 3.1 mmol/L (3.5-5.1)
[2023-03-24 08:02] LABS: ERYTHROCYTE SEDIMENTATION RATE < 1 MM/HR (0-20)
[2023-03-24] MEDS: DULoxetine HCL 30 MG CAPSULE.DR (CYMBALTA) PO SCH ×2 (08:06→21:41)
[2023-03-24] MEDS: SENNOSIDES 8.6 MG TABLET PO SCH ×3 (08:07→21:42)
[2023-03-24] MEDS: DOCUSATE SODIUM 100 MG/10 ML UDC PO SCH ×2 (08:07→21:39)
[2023-03-24] MEDS: METOPROLOL TARTRATE 25 MG TABLET PO SCH ×2 (08:08→21:43)
[2023-03-24] MEDS: BACLOFEN 10 MG TABLET PO SCH ×2 (08:09→21:42)
[2023-03-24] MEDS: APIXABAN 2.5 MG TABLET PO SCH ×2 (08:09→21:41)
[2023-03-24] MEDS: BISACODYL 5 MG TABLET.DR (DULCOLAX) PO SCH (08:10)
[2023-03-24] MEDS: PANTOPRAZOLE SODIUM 40 MG TAB PO SCH (08:10)
[2023-03-24] MEDS: CYANOCOBALAMIN (VITAMIN B-12) 1,000 MCG TABLET PO SCH (08:11)
[2023-03-24] MEDS: BARICITINIB -Non-Formulary 2 MG TABLET PO SCH (08:12)
[2023-03-24] MEDS ORDERED: POTASSIUM CHLORIDE 20 MEQ/PKT PACKET PO ONE (10:00)
[2023-03-24] MEDS: VANCOMYCIN HCL 1,250 MG in NS 250 ML IV SCH (10:37)
[2023-03-24 11:17] LABS: ABG O2 SAT% ESTIMATE 98.5 % (94.0-100.0); ALLEN'S TEST POSITIVE (P); BLOOD GAS BASE EXCESS -3.9 mmol/L (-3.0-3.0); BLOOD GAS HCO3 18.6 mmol/L (21.0-27.0); BLOOD GAS PCO2 27.6 mmHg (35.0-45.0); BLOOD GAS PH 7.446 (7.350-7.450); BLOOD GAS PO2 116.8 mmHg (75.0-100.0)
[2023-03-24] MEDS: MICAFUNGIN SODIUM 100 MG in NS 100 ML IV SCH (12:52)
[2023-03-25] VITALS (37 sets, daily range): BP systolic 72–150; PULSE 63–104; RESP 9–26; TEMP 97.8–99.2; O2SAT 98–100
[2023-03-25 04:32] LABS: ERYTHROCYTE SEDIMENTATION RATE < 1 MM/HR (0-20)
[2023-03-25 05:09] LABS: BASOPHILS % (AUTO) 0.1 % (0.0-2.0); HEMATOCRIT 23.9 % (36-48); HEMOGLOBIN 7.5 g/dL (12.0-16.0); LYMPHOCYTES # (AUTO) 0.5 K/uL (1.0-5.5); LYMPHOCYTES % (AUTO) 6.2 % (20.5-51.5); MEAN CORPUSCULAR HEMOGLOBIN 28 pg (27-31); MEAN CORPUSCULAR HGB CONC 31 % (32-36); MEAN CORPUSCULAR VOLUME 88 fL (79.0-98.0); MONOCYTES # (AUTO) 0.2 K/uL (0.0-1.0); MONOCYTES % (AUTO) 2.7 % (1.7-9.3); NEUTROPHILS # (AUTO) 7.4 K/uL (1.8-7.7); PLATELET COUNT (AUTO) 303 K/uL (130-430); RED BLOOD CELL COUNT(AUTO) 2.72 MIL/uL (4.2-6.2); RED CELL DISTRIBUTION WIDTH 18.7 % (9.0-15.0); WHITE BLOOD COUNT (AUTO) 8.2 K/uL (4.8-10.8)
[2023-03-25 05:11] LABS: ALBUMIN 1.7 g/dL (3.4-4.8); CREATININE 0.47 mg/dL (0.55-1.30); POTASSIUM 3.1 mmol/L (3.5-5.1); TOTAL BILIRUBIN 0.4 mg/dL (0.0-1.0); TOTAL PROTEIN, SERUM 3.8 g/dL (6.4-8.3)
[2023-03-25] MEDS: HYDROCORTISONE SOD SUCC 100 MG/2 ML VIAL IVP SCH ×2 (06:14→17:44)
[2023-03-25] MEDS: LEVOTHYROXINE SODIUM 0.025 MG TABLET PO SCH (06:14)
[2023-03-25] MEDS: PIPERACILLIN/TAZO 4.5GM/DEX-IS 100 ML IV SCH ×3 (06:15→21:27)
[2023-03-25] MEDS: BACLOFEN 10 MG TABLET PO SCH ×2 (08:18→21:24)
[2023-03-25] MEDS: DULoxetine HCL 30 MG CAPSULE.DR (CYMBALTA) PO SCH ×2 (08:18→21:25)
[2023-03-25] MEDS: PANTOPRAZOLE SODIUM 40 MG TAB PO SCH (08:19)
[2023-03-25] MEDS: METOPROLOL TARTRATE 25 MG TABLET PO SCH ×2 (08:19→21:26)
[2023-03-25] MEDS: BARICITINIB -Non-Formulary 2 MG TABLET PO SCH (08:20)
[2023-03-25] MEDS: APIXABAN 2.5 MG TABLET PO SCH ×2 (08:20→21:28)
[2023-03-25] MEDS: CYANOCOBALAMIN (VITAMIN B-12) 1,000 MCG TABLET PO SCH (08:22)
[2023-03-25] MEDS: BISACODYL 5 MG TABLET.DR (DULCOLAX) PO SCH (08:23)
[2023-03-25] MEDS: SENNOSIDES 8.6 MG TABLET PO SCH ×3 (08:23→21:26)
[2023-03-25] MEDS: DOCUSATE SODIUM 100 MG/10 ML UDC PO SCH ×2 (08:23→21:25)
[2023-03-25] MEDS ORDERED: FUROSEMIDE 40 MG/4 ML VIAL IVP ONE (08:45)
[2023-03-25] MEDS ORDERED: POTASSIUM CHLORIDE 20 MEQ TABLET.ER PO ONE ×2 (08:45)
[2023-03-25] MEDS: VANCOMYCIN HCL 1,250 MG in NS 250 ML IV SCH (10:23)
[2023-03-25] MEDS: fentaNYL 100 MCG/HR PATCH TD SCH (12:00)
[2023-03-25] MEDS: D5/0.45 NS 1,000 ML IV SCH ×3 (12:15→18:22)
[2023-03-25] MEDS: MICAFUNGIN SODIUM 100 MG in NS 100 ML IV SCH (13:39)
[2023-03-25 16:59] LABS: VANCOMYCIN,TROUGH 15.3 ug/mL (10.0-20.0)
[2023-03-25] MEDS ORDERED: POTASSIUM CHLORIDE 20 MEQ/PKT PACKET NG ONE (17:15)
[2023-03-25] MEDS: COLISTIMETHATE SODIUM 150 MG VIAL INH SCH (20:15)
[2023-03-26] VITALS (30 sets, daily range): BP systolic 101–155; PULSE 60–107; RESP 12–23; TEMP 97.6–98.1; O2SAT 96–100
[2023-03-26 05:52] LABS: ERYTHROCYTE SEDIMENTATION RATE < 1 MM/HR (0-20)
[2023-03-26 06:07] LABS: BASOPHILS % (AUTO) 0.1 % (0.0-2.0); HEMATOCRIT 22.3 % (36-48); HEMOGLOBIN 7.2 g/dL (12.0-16.0); LYMPHOCYTES # (AUTO) 0.5 K/uL (1.0-5.5); LYMPHOCYTES % (AUTO) 5.1 % (20.5-51.5); MEAN CORPUSCULAR HEMOGLOBIN 28 pg (27-31); MEAN CORPUSCULAR HGB CONC 32 % (32-36); MEAN CORPUSCULAR VOLUME 87 fL (79.0-98.0); MONOCYTES # (AUTO) 0.3 K/uL (0.0-1.0); MONOCYTES % (AUTO) 3.5 % (1.7-9.3); NEUTROPHILS # (AUTO) 8.9 K/uL (1.8-7.7); NEUTROPHILS % (AUTO) 91.3 % (40.0-70.0); PLATELET COUNT (AUTO) 314 K/uL (130-430); RED BLOOD CELL COUNT(AUTO) 2.57 MIL/uL (4.2-6.2); RED CELL DISTRIBUTION WIDTH 18.9 % (9.0-15.0); WHITE BLOOD COUNT (AUTO) 9.7 K/uL (4.8-10.8)
[2023-03-26] MEDS: PIPERACILLIN/TAZO 4.5GM/DEX-IS 100 ML IV SCH ×3 (06:15→22:23)
[2023-03-26] MEDS: LEVOTHYROXINE SODIUM 0.025 MG TABLET PO SCH (06:16)
[2023-03-26] MEDS: HYDROCORTISONE SOD SUCC 100 MG/2 ML VIAL IVP SCH ×2 (06:16→17:55)
[2023-03-26 06:42] LABS: ALBUMIN 1.5 g/dL (3.4-4.8); CALCIUM 8.3 mg/dL (8.4-11.0); CREATININE 0.43 mg/dL (0.55-1.30); TOTAL BILIRUBIN 0.3 mg/dL (0.0-1.0); TOTAL PROTEIN, SERUM 3.6 g/dL (6.4-8.3)
[2023-03-26 07:45] LABS: POTASSIUM 2.7 mmol/L (3.5-5.1)
[2023-03-26] MEDS: D5/0.45 NS 1,000 ML IV SCH ×2 (08:15→18:06)
[2023-03-26] MEDS: COLISTIMETHATE SODIUM 150 MG VIAL INH SCH ×2 (08:27→22:08)
[2023-03-26] MEDS ORDERED: KCL 40 mEq in 100 mL (PREMIX) 100 ML IV ONE (08:45)
[2023-03-26] MEDS: DOCUSATE SODIUM 100 MG/10 ML UDC PO SCH ×2 (09:24→20:15)
[2023-03-26] MEDS: PANTOPRAZOLE SODIUM 40 MG TAB PO SCH (09:25)
[2023-03-26] MEDS: BACLOFEN 10 MG TABLET PO SCH ×2 (09:25→20:15)
[2023-03-26] MEDS: METOPROLOL TARTRATE 25 MG TABLET PO SCH ×2 (09:25→20:15)
[2023-03-26] MEDS: CYANOCOBALAMIN (VITAMIN B-12) 1,000 MCG TABLET PO SCH (09:26)
[2023-03-26] MEDS: APIXABAN 2.5 MG TABLET PO SCH ×2 (09:26→20:16)
[2023-03-26] MEDS: SENNOSIDES 8.6 MG TABLET PO SCH ×3 (09:26→20:15)
[2023-03-26] MEDS: BARICITINIB -Non-Formulary 2 MG TABLET PO SCH (09:26)
[2023-03-26] MEDS: DULoxetine HCL 30 MG CAPSULE.DR (CYMBALTA) PO SCH ×2 (09:31→20:15)
[2023-03-26] MEDS: BISACODYL 5 MG TABLET.DR (DULCOLAX) PO SCH (09:31)
[2023-03-26] MEDS: VANCOMYCIN HCL 1,250 MG in NS 250 ML IV SCH (12:05)
[2023-03-26] MEDS: MICAFUNGIN SODIUM 100 MG in NS 100 ML IV SCH (14:02)
[2023-03-26 14:25] LABS: ABG O2 SAT% ESTIMATE 99.3 % (94.0-100.0); BLOOD GAS BASE EXCESS -3.8 mmol/L (-3.0-3.0); BLOOD GAS HCO3 20.6 mmol/L (21.0-27.0); BLOOD GAS PCO2 35.7 mmHg (35.0-45.0); BLOOD GAS PH 7.379 (7.350-7.450)
[2023-03-26 14:26] LABS: ALLEN'S TEST POSITIVE (P)
[2023-03-26] MEDS: HYDROmorphone 2 MG TAB PO PRN (18:09)
[2023-03-27] VITALS (29 sets, daily range): BP systolic 88–185; PULSE 40–111; RESP 13–30; TEMP 97.6–98.4; O2SAT 95–100
[2023-03-27] MEDS: D5/0.45 NS 1,000 ML IV SCH ×2 (04:54→13:49)
[2023-03-27 05:09] LABS: LYMPHOCYTES # (AUTO) 0.6 K/uL (1.0-5.5); LYMPHOCYTES % (AUTO) 6.6 % (20.5-51.5); MEAN CORPUSCULAR HEMOGLOBIN 28 pg (27-31); MEAN CORPUSCULAR HGB CONC 32 % (32-36); MEAN CORPUSCULAR VOLUME 86 fL (79.0-98.0); MONOCYTES # (AUTO) 0.4 K/uL (0.0-1.0); NEUTROPHILS # (AUTO) 8.1 K/uL (1.8-7.7); NEUTROPHILS % (AUTO) 89.4 % (40.0-70.0); PLATELET COUNT (AUTO) 300 K/uL (130-430); RED BLOOD CELL COUNT(AUTO) 2.38 MIL/uL (4.2-6.2); RED CELL DISTRIBUTION WIDTH 18.8 % (9.0-15.0); WHITE BLOOD COUNT (AUTO) 9.1 K/uL (4.8-10.8)
[2023-03-27 05:49] LABS: ALBUMIN 1.4 g/dL (3.4-4.8); CALCIUM 8.8 mg/dL (8.4-11.0); CREATININE 0.49 mg/dL (0.55-1.30); POTASSIUM 3.1 mmol/L (3.5-5.1); TOTAL BILIRUBIN 0.3 mg/dL (0.0-1.0); TOTAL PROTEIN, SERUM 3.2 g/dL (6.4-8.3)
[2023-03-27] MEDS: PIPERACILLIN/TAZO 4.5GM/DEX-IS 100 ML IV SCH ×2 (06:00→22:00)
[2023-03-27] MEDS: HYDROCORTISONE SOD SUCC 100 MG/2 ML VIAL IVP SCH ×2 (06:00→18:00)
[2023-03-27 06:16] LABS: HEMOGLOBIN 6.5 g/dL (12.0-16.0)
[2023-03-27 06:17] LABS: HEMATOCRIT 20.6 % (36-48)
[2023-03-27] MEDS: COLISTIMETHATE SODIUM 150 MG VIAL INH SCH ×2 (08:08→20:12)
[2023-03-27] MEDS: SENNOSIDES 8.6 MG TABLET PO SCH ×3 (08:32→20:38)
[2023-03-27] MEDS: DOCUSATE SODIUM 100 MG/10 ML UDC PO SCH ×2 (08:32→20:38)
[2023-03-27] MEDS: PANTOPRAZOLE SODIUM 40 MG TAB PO SCH (08:33)
[2023-03-27] MEDS: DULoxetine HCL 30 MG CAPSULE.DR (CYMBALTA) PO SCH ×2 (08:33→20:38)
[2023-03-27] MEDS: METOPROLOL TARTRATE 25 MG TABLET PO SCH ×2 (08:34→20:38)
[2023-03-27] MEDS: LEVOTHYROXINE SODIUM 0.025 MG TABLET PO SCH (08:35)
[2023-03-27] MEDS: BACLOFEN 10 MG TABLET PO SCH ×2 (08:35→20:38)
[2023-03-27] MEDS: BISACODYL 5 MG TABLET.DR (DULCOLAX) PO SCH (08:35)
[2023-03-27] MEDS: CYANOCOBALAMIN (VITAMIN B-12) 1,000 MCG TABLET PO SCH (08:35)
[2023-03-27] MEDS: BARICITINIB -Non-Formulary 2 MG TABLET PO SCH (08:36)
[2023-03-27] MEDS: APIXABAN 2.5 MG TABLET PO SCH ×2 (09:00→20:38)
[2023-03-27] MEDS: VANCOMYCIN HCL 1,250 MG in NS 250 ML IV SCH (10:37)
[2023-03-27] MEDS ORDERED: POTASSIUM CHLORIDE 20 MEQ TABLET.ER PO ONE (11:00)
[2023-03-27] MEDS: MICAFUNGIN SODIUM 100 MG in NS 100 ML IV SCH (12:01)
[2023-03-27] MEDS: hydrALAZINE HCL 20 MG/ML VIAL IVP PRN (19:06)
[2023-03-28] VITALS (35 sets, daily range): BP systolic 102–180; PULSE 9–136; RESP 19–39; TEMP 97–98.3; O2SAT 83–100
[2023-03-28] MEDS: D5/0.45 NS 1,000 ML IV SCH ×3 (00:54→20:56)
[2023-03-28] MEDS: hydrALAZINE HCL 20 MG/ML VIAL IVP PRN ×2 (01:02→13:42)
[2023-03-28] MEDS: LORazepam 2 MG/ML VIAL IVP PRN ×2 (01:03→08:27)
[2023-03-28] MEDS: PIPERACILLIN/TAZO 4.5GM/DEX-IS 100 ML IV SCH ×3 (05:09→20:55)
[2023-03-28] MEDS: HYDROCORTISONE SOD SUCC 100 MG/2 ML VIAL IVP SCH ×2 (05:10→18:08)
[2023-03-28 05:16] LABS: BASOPHILS % (AUTO) 0.3 % (0.0-2.0); EOSINOPHILS % (AUTO) 0.1 % (0.0-4.0); HEMATOCRIT 37.2 % (36-48); HEMOGLOBIN 11.9 g/dL (12.0-16.0); LYMPHOCYTES # (AUTO) 0.3 K/uL (1.0-5.5); LYMPHOCYTES % (AUTO) 1.5 % (20.5-51.5); MEAN CORPUSCULAR HEMOGLOBIN 28 pg (27-31); MEAN CORPUSCULAR HGB CONC 32 % (32-36); MEAN CORPUSCULAR VOLUME 86 fL (79.0-98.0); MONOCYTES # (AUTO) 0.5 K/uL (0.0-1.0); MONOCYTES % (AUTO) 3.2 % (1.7-9.3); NEUTROPHILS # (AUTO) 15.9 K/uL (1.8-7.7); NEUTROPHILS % (AUTO) 94.9 % (40.0-70.0); PLATELET COUNT (AUTO) 514 K/uL (130-430); RED BLOOD CELL COUNT(AUTO) 4.32 MIL/uL (4.2-6.2); RED CELL DISTRIBUTION WIDTH 17.5 % (9.0-15.0); WHITE BLOOD COUNT (AUTO) 16.8 K/uL (4.8-10.8)
[2023-03-28 05:37] LABS: CREATININE 0.45 mg/dL (0.55-1.30)
[2023-03-28 06:00] LABS: ERYTHROCYTE SEDIMENTATION RATE 3 MM/HR (0-20)
[2023-03-28 06:10] LABS: POTASSIUM 2.9 mmol/L (3.5-5.1)
[2023-03-28] MEDS ORDERED: KCL 40 mEq in 100 mL (PREMIX) 100 ML IV ONE (06:45)
[2023-03-28] MEDS: LEVOTHYROXINE SODIUM 0.025 MG TABLET PO SCH (07:00)
[2023-03-28] MEDS: COLISTIMETHATE SODIUM 150 MG VIAL INH SCH ×2 (07:38→20:01)
[2023-03-28] MEDS: BACLOFEN 10 MG TABLET PO SCH ×2 (08:25→20:40)
[2023-03-28] MEDS: DOCUSATE SODIUM 100 MG/10 ML UDC PO SCH ×2 (08:25→20:40)
[2023-03-28] MEDS: DULoxetine HCL 30 MG CAPSULE.DR (CYMBALTA) PO SCH ×2 (08:25→20:40)
[2023-03-28] MEDS: METOPROLOL TARTRATE 25 MG TABLET PO SCH ×2 (08:26→20:40)
[2023-03-28] MEDS: BISACODYL 5 MG TABLET.DR (DULCOLAX) PO SCH (08:26)
[2023-03-28] MEDS: CYANOCOBALAMIN (VITAMIN B-12) 1,000 MCG TABLET PO SCH (08:26)
[2023-03-28] MEDS: APIXABAN 2.5 MG TABLET PO SCH ×2 (08:26→20:40)
[2023-03-28] MEDS: SENNOSIDES 8.6 MG TABLET PO SCH ×3 (08:26→20:41)
[2023-03-28] MEDS: PANTOPRAZOLE SODIUM 40 MG/VIAL (PROTONIX) IVP SCH (08:29)
[2023-03-28 10:21] LABS: BLOOD GAS PH 7.405 (7.350-7.450); BLOOD GAS PO2 68.2 mmHg (75.0-100.0)
[2023-03-28 10:22] LABS: ALLEN'S TEST POSITIVE (P); BLOOD GAS HCO3 18.4 mmol/L (21.0-27.0)
[2023-03-28] MEDS: VANCOMYCIN HCL 1,250 MG in NS 250 ML IV SCH (11:26)
[2023-03-28] MEDS: fentaNYL 100 MCG/HR PATCH TD SCH (11:29)
[2023-03-28] MEDS: MICAFUNGIN SODIUM 100 MG in NS 100 ML IV SCH (13:36)
[2023-03-28] MEDS: CEFIDEROCOL SULFATE TOSYLATE 1 GM in NS 100 ML IV SCH ×2 (15:25→20:55)
[2023-03-29] VITALS (31 sets, daily range): BP systolic 86–190; PULSE 58–106; RESP 17–37; TEMP 96–97.2; O2SAT 92–100
[2023-03-29 04:53] LABS: ERYTHROCYTE SEDIMENTATION RATE < 1 MM/HR (0-20)
[2023-03-29] MEDS: PIPERACILLIN/TAZO 4.5GM/DEX-IS 100 ML IV SCH (05:05)
[2023-03-29] MEDS: HYDROCORTISONE SOD SUCC 100 MG/2 ML VIAL IVP SCH ×2 (05:07→17:22)
[2023-03-29] MEDS: CEFIDEROCOL SULFATE TOSYLATE 1 GM in NS 100 ML IV SCH ×3 (05:08→22:50)
[2023-03-29 05:13] LABS: BASOPHILS % (AUTO) 0.1 % (0.0-2.0); EOSINOPHILS % (AUTO) 0.3 % (0.0-4.0); HEMATOCRIT 30.6 % (36-48); LYMPHOCYTES # (AUTO) 0.4 K/uL (1.0-5.5); LYMPHOCYTES % (AUTO) 4.6 % (20.5-51.5); MEAN CORPUSCULAR HEMOGLOBIN 28 pg (27-31); MEAN CORPUSCULAR HGB CONC 33 % (32-36); MEAN CORPUSCULAR VOLUME 86 fL (79.0-98.0); MONOCYTES # (AUTO) 0.4 K/uL (0.0-1.0); MONOCYTES % (AUTO) 4.5 % (1.7-9.3); NEUTROPHILS # (AUTO) 7.4 K/uL (1.8-7.7); NEUTROPHILS % (AUTO) 90.5 % (40.0-70.0); PLATELET COUNT (AUTO) 364 K/uL (130-430); RED BLOOD CELL COUNT(AUTO) 3.55 MIL/uL (4.2-6.2); RED CELL DISTRIBUTION WIDTH 17.4 % (9.0-15.0); WHITE BLOOD COUNT (AUTO) 8.1 K/uL (4.8-10.8)
[2023-03-29] MEDS: D5/0.45 NS 1,000 ML IV SCH ×2 (05:34→16:15)
[2023-03-29 05:35] LABS: ALBUMIN 1.6 g/dL (3.4-4.8); CALCIUM 9.5 mg/dL (8.4-11.0); CREATININE 0.4 mg/dL (0.55-1.30); TOTAL BILIRUBIN 0.6 mg/dL (0.0-1.0); TOTAL PROTEIN, SERUM 3.8 g/dL (6.4-8.3)
[2023-03-29 06:07] LABS: POTASSIUM 2.7 mmol/L (3.5-5.1)
[2023-03-29] MEDS: LEVOTHYROXINE SODIUM 0.025 MG TABLET PO SCH (06:23)
[2023-03-29] MEDS: COLISTIMETHATE SODIUM 150 MG VIAL INH SCH ×2 (07:27→20:00)
[2023-03-29] MEDS ORDERED: KCL 40 mEq in 100 mL (PREMIX) 100 ML IV ONE (08:00)
[2023-03-29] MEDS ORDERED: *LOVENOX 1MG/KG Q24H/PHARMACY XX ONE (08:15)
[2023-03-29] MEDS: METOPROLOL TARTRATE 25 MG TABLET PO SCH ×2 (09:00)
[2023-03-29] MEDS: DULoxetine HCL 30 MG CAPSULE.DR (CYMBALTA) PO SCH ×2 (09:00)
[2023-03-29] MEDS: CYANOCOBALAMIN (VITAMIN B-12) 1,000 MCG TABLET PO SCH (09:00)
[2023-03-29] MEDS: BACLOFEN 10 MG TABLET PO SCH ×2 (09:00)
[2023-03-29] MEDS: BISACODYL 5 MG TABLET.DR (DULCOLAX) PO SCH (09:00)
[2023-03-29] MEDS: DOCUSATE SODIUM 100 MG/10 ML UDC PO SCH ×2 (09:00)
[2023-03-29] MEDS: SENNOSIDES 8.6 MG TABLET PO SCH ×3 (09:00→13:32)
[2023-03-29] MEDS: APIXABAN 2.5 MG TABLET PO SCH (09:00)
[2023-03-29] MEDS: PANTOPRAZOLE SODIUM 40 MG/VIAL (PROTONIX) IVP SCH (09:34)
[2023-03-29] MEDS ORDERED: ENOXAPARIN SODIUM 60 MG/0.6 ML SYRINGE SUBCUT ONE (11:00)
[2023-03-29] MEDS: VANCOMYCIN HCL 1,250 MG in NS 250 ML IV SCH (11:31)
[2023-03-29] MEDS: MICAFUNGIN SODIUM 100 MG in NS 100 ML IV SCH (13:29)
[2023-03-29] MEDS: LORazepam 2 MG/ML VIAL IVP PRN (17:22)
[2023-03-29] MEDS: INSULIN REGULAR, HUMAN 100 UNITS/ML, 3 ML VIAL (humuLIN R) SUBCUT PRN (22:31)
[2023-03-30] VITALS (30 sets, daily range): BP systolic 100–177; PULSE 47–111; RESP 16–36; TEMP 96.3–97.4; O2SAT 94–100
[2023-03-30 05:45] LABS: BASOPHILS % (AUTO) 0.1 % (0.0-2.0); HEMATOCRIT 33.8 % (36-48); HEMOGLOBIN 10.5 g/dL (12.0-16.0); LYMPHOCYTES # (AUTO) 0.3 K/uL (1.0-5.5); LYMPHOCYTES % (AUTO) 1.6 % (20.5-51.5); MEAN CORPUSCULAR HEMOGLOBIN 27 pg (27-31); MEAN CORPUSCULAR HGB CONC 31 % (32-36); MEAN CORPUSCULAR VOLUME 88 fL (79.0-98.0); MONOCYTES # (AUTO) 0.8 K/uL (0.0-1.0); MONOCYTES % (AUTO) 5.4 % (1.7-9.3); NEUTROPHILS # (AUTO) 14.7 K/uL (1.8-7.7); NEUTROPHILS % (AUTO) 92.9 % (40.0-70.0); PLATELET COUNT (AUTO) 499 K/uL (130-430); RED BLOOD CELL COUNT(AUTO) 3.85 MIL/uL (4.2-6.2); RED CELL DISTRIBUTION WIDTH 18.2 % (9.0-15.0); WHITE BLOOD COUNT (AUTO) 15.8 K/uL (4.8-10.8)
[2023-03-30 05:50] LABS: CALCIUM 9.8 mg/dL (8.4-11.0); CREATININE 0.52 mg/dL (0.55-1.30); POTASSIUM 3.4 mmol/L (3.5-5.1)
[2023-03-30] MEDS: HYDROCORTISONE SOD SUCC 100 MG/2 ML VIAL IVP SCH ×2 (06:34→17:31)
[2023-03-30] MEDS: CEFIDEROCOL SULFATE TOSYLATE 1 GM in NS 100 ML IV SCH ×3 (06:34→21:20)
[2023-03-30] MEDS: D5/0.45 NS 1,000 ML IV SCH ×3 (06:36→19:39)
[2023-03-30] MEDS: LEVOTHYROXINE SODIUM 0.025 MG TABLET PO SCH (06:38)
[2023-03-30 06:40] LABS: ERYTHROCYTE SEDIMENTATION RATE 1 MM/HR (0-20)
[2023-03-30] MEDS ORDERED: FUROSEMIDE 40 MG/4 ML VIAL IVP ONE (08:00)
[2023-03-30] MEDS ORDERED: ALBUMIN HUMAN 25% 100 ML IV ONE (08:15)
[2023-03-30] MEDS: BACLOFEN 10 MG TABLET PO SCH ×2 (08:54→21:19)
[2023-03-30] MEDS: METOPROLOL TARTRATE 25 MG TABLET PO SCH ×2 (08:54→21:21)
[2023-03-30] MEDS: DOCUSATE SODIUM 100 MG/10 ML UDC PO SCH ×2 (08:54→21:19)
[2023-03-30] MEDS: BISACODYL 5 MG TABLET.DR (DULCOLAX) PO SCH (08:54)
[2023-03-30] MEDS: SENNOSIDES 8.6 MG TABLET PO SCH ×3 (08:54→21:19)
[2023-03-30] MEDS: DULoxetine HCL 30 MG CAPSULE.DR (CYMBALTA) PO SCH ×2 (08:54→21:19)
[2023-03-30] MEDS: CYANOCOBALAMIN (VITAMIN B-12) 1,000 MCG TABLET PO SCH (08:55)
[2023-03-30] MEDS: PANTOPRAZOLE SODIUM 40 MG/VIAL (PROTONIX) IVP SCH (08:58)
[2023-03-30] MEDS: ENOXAPARIN SODIUM 60 MG/0.6 ML SYRINGE SUBCUT SCH (08:58)
[2023-03-30] MEDS: BALSAM PERU/CASTOR OIL 56.7 GM OINT...G. TP SCH (09:00)
[2023-03-30] MEDS: COLISTIMETHATE SODIUM 150 MG VIAL INH SCH ×2 (09:17→21:02)
[2023-03-30] MEDS: hydrALAZINE HCL 20 MG/ML VIAL IVP PRN ×3 (11:28→22:50)
[2023-03-30] MEDS: VANCOMYCIN HCL 1,250 MG in NS 250 ML IV SCH (11:29)
[2023-03-30] MEDS ORDERED: ACETYLCYSTEINE 20% 4 ML VIAL (RT) ONE (13:43)
[2023-03-30] MEDS ORDERED: ACETYLCYSTEINE 20% 4 ML VIAL (RT) INH ONE ×2 (14:00→18:30)
[2023-03-30] MEDS ORDERED: IPRATROPIUM/ALBUTEROL SULFATE 3 ML AMPUL.NEB (DUONEB) INH ONE (14:00)
[2023-03-30] MEDS: IPRATROPIUM BROM 0.5 MG/2.5 ML VIAL.NEB (ATROVENT) INH PRN (14:01)
[2023-03-30] MEDS: ALBUTEROL SULFATE 0.083% 2.5 MG/3 ML VIAL.NEB INH PRN (14:01)
[2023-03-30] MEDS ORDERED: ACETYLCYSTEINE 20% 4 ML VIAL (RT) INH SCH (15:00)
[2023-03-30] MEDS: LORazepam 2 MG/ML VIAL IVP PRN (16:13)
[2023-03-30] MEDS ORDERED: hydrALAZINE HCL 20 MG/ML VIAL ONE (17:29)
[2023-03-30] MEDS: IPRATROPIUM/ALBUTEROL SULFATE 3 ML AMPUL.NEB (DUONEB) INH SCH (19:37)
[2023-03-31] VITALS (35 sets, daily range): BP systolic 113–167; PULSE 18–100; RESP 13–44; TEMP 96.8–98.2; O2SAT 96–100
[2023-03-31] MEDS: IPRATROPIUM/ALBUTEROL SULFATE 3 ML AMPUL.NEB (DUONEB) INH SCH ×4 (01:30→20:02)
[2023-03-31] MEDS: ACETYLCYSTEINE 20% 4 ML VIAL (RT) INH SCH ×4 (01:41→20:02)
[2023-03-31] MEDS: hydrALAZINE HCL 20 MG/ML VIAL IVP PRN ×2 (05:18→21:53)
[2023-03-31 06:06] LABS: INR 1.1 (0.8-1.2)
[2023-03-31 06:09] LABS: CALCIUM 8.8 mg/dL (8.4-11.0); CREATININE 0.44 mg/dL (0.55-1.30)
[2023-03-31] MEDS: HYDROCORTISONE SOD SUCC 100 MG/2 ML VIAL IVP SCH ×2 (06:21→17:53)
[2023-03-31] MEDS: LEVOTHYROXINE SODIUM 0.025 MG TABLET PO SCH (06:22)
[2023-03-31 06:26] LABS: POTASSIUM 2.3 mmol/L (3.5-5.1)
[2023-03-31] MEDS ORDERED: POTASSIUM CHLORIDE 20 MEQ in NS 250 ML IV ONE (06:45)
[2023-03-31] MEDS: KCL 20 mEq in 100 mL (PREMIX) 100 ML IV SCH ×5 (07:21→15:00)
[2023-03-31 07:29] LABS: ERYTHROCYTE SEDIMENTATION RATE < 1 MM/HR (0-20)
[2023-03-31 07:53] LABS: BASOPHILS % (AUTO) 0.1 % (0.0-2.0); HEMATOCRIT 31.5 % (36-48); HEMOGLOBIN 10.1 g/dL (12.0-16.0); LYMPHOCYTES # (AUTO) 0.3 K/uL (1.0-5.5); LYMPHOCYTES % (AUTO) 2.2 % (20.5-51.5); MEAN CORPUSCULAR HEMOGLOBIN 28 pg (27-31); MEAN CORPUSCULAR HGB CONC 32 % (32-36); MEAN CORPUSCULAR VOLUME 87 fL (79.0-98.0); MONOCYTES # (AUTO) 0.4 K/uL (0.0-1.0); MONOCYTES % (AUTO) 3.5 % (1.7-9.3); NEUTROPHILS # (AUTO) 10.7 K/uL (1.8-7.7); NEUTROPHILS % (AUTO) 94.2 % (40.0-70.0); PLATELET COUNT (AUTO) 345 K/uL (130-430); RED CELL DISTRIBUTION WIDTH 18.1 % (9.0-15.0)
[2023-03-31 07:54] LABS: WHITE BLOOD COUNT (AUTO) 11.4 K/uL (4.8-10.8)
[2023-03-31] MEDS: COLISTIMETHATE SODIUM 150 MG VIAL INH SCH ×2 (08:46→20:18)
[2023-03-31] MEDS: PANTOPRAZOLE SODIUM 40 MG/VIAL (PROTONIX) IVP SCH (08:50)
[2023-03-31] MEDS: ENOXAPARIN SODIUM 60 MG/0.6 ML SYRINGE SUBCUT SCH (08:51)
[2023-03-31] MEDS: D5/0.45 NS 1,000 ML IV SCH (08:55)
[2023-03-31] MEDS: METOPROLOL TARTRATE 25 MG TABLET PO SCH ×2 (09:00→21:25)
[2023-03-31] MEDS: SENNOSIDES 8.6 MG TABLET PO SCH ×3 (09:00→21:26)
[2023-03-31] MEDS: DOCUSATE SODIUM 100 MG/10 ML UDC PO SCH ×2 (09:00→21:24)
[2023-03-31] MEDS: BACLOFEN 10 MG TABLET PO SCH ×2 (09:00→21:26)
[2023-03-31] MEDS: DULoxetine HCL 30 MG CAPSULE.DR (CYMBALTA) PO SCH ×2 (09:00→21:26)
[2023-03-31] MEDS: BISACODYL 5 MG TABLET.DR (DULCOLAX) PO SCH (09:00)
[2023-03-31] MEDS: BALSAM PERU/CASTOR OIL 56.7 GM OINT...G. TP SCH (09:00)
[2023-03-31] MEDS: CYANOCOBALAMIN (VITAMIN B-12) 1,000 MCG TABLET PO SCH (09:00)
[2023-03-31] MEDS: CEFIDEROCOL SULFATE TOSYLATE 1 GM in NS 100 ML IV SCH ×3 (09:21→21:27)
[2023-03-31] MEDS ORDERED: MAGNESIUM SULFATE 50 ML IV ONE (10:45)
[2023-03-31] MEDS: fentaNYL 100 MCG/HR PATCH TD SCH (11:34)
[2023-03-31] MEDS: HYDROmorphone 2 MG TAB PO PRN (11:54)
[2023-03-31] MEDS ORDERED: LORazepam 2 MG/ML VIAL IM PRN (14:30)
[2023-03-31 19:07] LABS: CALCIUM 9.3 mg/dL (8.4-11.0); CREATININE 0.5 mg/dL (0.55-1.30); POTASSIUM 3.7 mmol/L (3.5-5.1)
[2023-03-31] MEDS ORDERED: FUROSEMIDE 40 MG/4 ML VIAL IVP ONE (22:00)
[2023-03-31] MEDS ORDERED: ALBUMIN HUMAN 25% 100 ML IV ONE (23:30)
[2023-04-01] VITALS (27 sets, daily range): BP systolic 76–175; PULSE 67–90; RESP 18–43; TEMP 96–97.3; O2SAT 91–100
[2023-04-01] MEDS ORDERED: ALBUMIN HUMAN 25% 100 ML IV ONE (01:48)
[2023-04-01] MEDS: IPRATROPIUM/ALBUTEROL SULFATE 3 ML AMPUL.NEB (DUONEB) INH SCH ×2 (02:07→07:14)
[2023-04-01] MEDS: ACETYLCYSTEINE 20% 4 ML VIAL (RT) INH SCH ×2 (02:07→07:15)
[2023-04-01 04:59] LABS: ERYTHROCYTE SEDIMENTATION RATE < 1 MM/HR (0-20)
[2023-04-01 05:09] LABS: BASOPHILS % (AUTO) 0.3 % (0.0-2.0); EOSINOPHILS % (AUTO) 0.3 % (0.0-4.0); HEMATOCRIT 29.5 % (36-48); HEMOGLOBIN 9.6 g/dL (12.0-16.0); LYMPHOCYTES # (AUTO) 0.2 K/uL (1.0-5.5); LYMPHOCYTES % (AUTO) 1.8 % (20.5-51.5); MEAN CORPUSCULAR HEMOGLOBIN 28 pg (27-31); MEAN CORPUSCULAR HGB CONC 32 % (32-36); MEAN CORPUSCULAR VOLUME 87 fL (79.0-98.0); MONOCYTES # (AUTO) 0.3 K/uL (0.0-1.0); NEUTROPHILS # (AUTO) 10.3 K/uL (1.8-7.7); NEUTROPHILS % (AUTO) 94.6 % (40.0-70.0); PLATELET COUNT (AUTO) 283 K/uL (130-430); RED CELL DISTRIBUTION WIDTH 19.1 % (9.0-15.0); WHITE BLOOD COUNT (AUTO) 10.9 K/uL (4.8-10.8)
[2023-04-01 05:30] LABS: ALBUMIN 2.7 g/dL (3.4-4.8); CALCIUM 9.9 mg/dL (8.4-11.0); CREATININE 0.53 mg/dL (0.55-1.30); PHOSPHORUS 2.7 mg/dL (2.7-4.5); TOTAL BILIRUBIN 0.9 mg/dL (0.0-1.0); VANCOMYCIN,RANDOM 29.5 ug/mL (20.0-30.0)
[2023-04-01] MEDS: CEFIDEROCOL SULFATE TOSYLATE 1 GM in NS 100 ML IV SCH (06:07)
[2023-04-01] MEDS: LEVOTHYROXINE SODIUM 0.025 MG TABLET PO SCH (06:08)
[2023-04-01] MEDS: HYDROCORTISONE SOD SUCC 100 MG/2 ML VIAL IVP SCH (06:08)
[2023-04-01] MEDS ORDERED: POTASSIUM CHLORIDE 20 MEQ TABLET.ER PO ONE (08:30)
[2023-04-01] MEDS ORDERED: NALOXONE HCL 0.4 MG/ML AMP (NARCAN) IVP PRN (09:00)
[2023-04-01] MEDS: MORPHINE SULFATE IN 0.9 % NACL 100 ML IV PRN ×2 (10:53→21:54)
[2023-04-02] VITALS (17 sets, daily range): BP systolic 0–146; PULSE 45–97; RESP 15–53; TEMP 97.3–97.9; O2SAT 45–98
[2023-04-02] MEDS: MORPHINE SULFATE IN 0.9 % NACL 100 ML IV PRN (05:22)
== END 2023-04-02 16:50 | DRG 870 ==
LOC: SED 09:38 → SIC 13:14 → STU 03-17 23:40 → SIC 03-20 13:15
PROVIDERS: ADMIT Preventive Medicine Preventive Medicine/Occupational Environmental Medicine; ATTEND Preventive Medicine Preventive Medicine/Occupational Environmental Medicine
PROC: 5A1955Z Respiratory Ventilation, Greater than 96 Consecutive Hours (ICD-10-PCS; principal; 2023-03-20)
PROC: 0BH18EZ Insertion of Endotracheal Airway into Trachea, Via Natural or Artificial Opening Endoscopic (ICD-10-PCS; 2023-03-20)
PROC: XW033E5 Introduction of Remdesivir Anti-infective into Peripheral Vein, Percutaneous Approach, New Technology Group 5 (ICD-10-PCS; 2023-03-20)
PROC: 30233N1 Transfusion of Nonautologous Red Blood Cells into Peripheral Vein, Percutaneous Approach (ICD-10-PCS; 2023-03-27)
PROC: 5A09457 Assistance with Respiratory Ventilation, 24-96 Consecutive Hours, Continuous Positive Airway Pressure (ICD-10-PCS; 2023-03-28)
PROC: 5A09457 Assistance with Respiratory Ventilation, 24-96 Consecutive Hours, Continuous Positive Airway Pressure (ICD-10-PCS; 2023-03-30)
DX: A41.9 Sepsis, unspecified organism (principal); U07.1 COVID-19; E43 Unspecified severe protein-calorie malnutrition; J96.01 Acute respiratory failure with hypoxia; J15.61 Pneumonia due to Acinetobacter baumannii; R65.21 Severe sepsis with septic shock; J12.82 Pneumonia due to coronavirus disease 2019; B49 Unspecified mycosis; Z99.11 Dependence on respirator [ventilator] status; Z16.24 Resistance to multiple antibiotics; Z16.13 Resistance to carbapenem; E87.1 Hypo-osmolality and hyponatremia; K92.2 Gastrointestinal hemorrhage, unspecified; E11.65 Type 2 diabetes mellitus with hyperglycemia; E87.6 Hypokalemia; I48.91 Unspecified atrial fibrillation; G89.4 Chronic pain syndrome; D75.839 Thrombocytosis, unspecified; D64.9 Anemia, unspecified; B95.7 Other staphylococcus as the cause of diseases classified elsewhere; K80.20 Calculus of gallbladder without cholecystitis without obstruction; R74.01 Elevation of levels of liver transaminase levels; R13.10 Dysphagia, unspecified; E83.52 Hypercalcemia; E88.09 Other disorders of plasma-protein metabolism, not elsewhere classified; Z79.01 Long term (current) use of anticoagulants; Z78.9 Other specified health status
CPT/HCPCS: 36415; 36600; 71045; 76700-TC; 78226; 80048; 80053; 80074; 80076; 80202; 80307; 81000; 81001; 81015; 82103; 82272; 82390; 82728; 82803; 82962; 83516; 83540; 83550; 83605; 83690; 83735; 84100; 84450; 84460; 84484; 85025; 85379; 85610-TC; 85651-TC; 85730-TC; 86038; 86376; 86886; 86900; 86901; 86920; 87040; 87070-TC; 87081; 87086; 87186-TC; 87205-TC; 92610-GN; 92950; 93005; 93923; 94002; 94003; 94640; 94660; 94668; 94760; 96365; 96366; 99285; A9537; C9113; G0378; G0480; G0481; J0360; J0456; J0696; J0699; J0770; J1100; J1650; J1720; J1815; J1940; J2060; J2248; J2270; J2543; J3370; J3475; J3480; J7040; J7050; J7060; J7608; P9021; P9046